=== PATIENT | male | born 1995 | race African-American/Black ===

== ENCOUNTER 2024-05-08 21:22 | Emergency (ER) | payer OTHER ==
[~2024-05-08] VITALS: Ht 167.6 cm; Wt 75.7 kg
[2024-05-09 00:01] VITALS: BP 118/64; TEMP 98.4; O2SAT 99
== END 2024-05-09 00:02 | disposition home or self-care (01) ==
LOC: M ED 21:22
DX: S90.31XA Contusion of right foot, initial encounter (principal); W50.0XXA Accidental hit or strike by another person, initial encounter; Y92.009 Unspecified place in unspecified non-institutional (private) residence as the place of occurrence of the external cause; Y93.66 Activity, soccer; Y99.9 Unspecified external cause status; Z88.8 Allergy status to other drugs, medicaments and biological substances

== ENCOUNTER 2024-11-03 22:57 | Emergency (ER) | payer OTHER ==
[~2024-11-03] VITALS: Ht 167.6 cm; Wt 70.9 kg
[2024-11-04] MEDS: LIDOCAINE W/EPINEPHRINE 1% 20ML VIAL SC ONE (02:22)
[2024-11-04 02:25] VITALS: BP 118/72; TEMP 97.4; O2SAT 98
== END 2024-11-04 02:31 | disposition home or self-care (01) ==
LOC: M ED 22:57 → EDBD 22:57 → M ED 11-04 02:31
DX: S01.419A Laceration without foreign body of unspecified cheek and temporomandibular area, initial encounter (principal); Y00.XXXA Assault by blunt object, initial encounter; Y92.009 Unspecified place in unspecified non-institutional (private) residence as the place of occurrence of the external cause; Y93.9 Activity, unspecified; Y99.9 Unspecified external cause status